=== PATIENT | female | born 1955 | race Caucasian/White ===

== ENCOUNTER → 2017-01-30 | Outpatient (CLI) | payer BC ==
--- NOTE | 2017-01-31 10:05 | MM ---
Reason for exam: screening (asymptomatic). Last mammogram was performed 1 year ago. History: Patient is postmenopausal. Family history of breast cancer in 2 maternal aunts and breast cancer in mother at age 64. Benign core biopsy of the right breast, October 06, 1997. Took estrogen for 10 years 6 months. Physical Findings: A clinical breast exam by your physician is recommended on an annual basis and results should be correlated with mammographic findings. MG Screening Mammo w CAD Bilateral CC and MLO view(s) were taken. Prior study comparison: January 16, 2016, bilateral MG screening mammo w CAD. January 10, 2015, bilateral MG diagnostic mammo w CAD [facility]. There are scattered fibroglandular densities. There is no discrete abnormality. No significant changes when compared with prior studies. ASSESSMENT: Negative, BI-RAD 1 RECOMMENDATION: Routine screening mammogram of both breasts in 1 year.
== END | disposition home or self-care (01) ==
LOC: RADMAMWWP 10:54
PROVIDERS: ATTEND Family Medicine
DX: Z12.31 Encounter for screening mammogram for malignant neoplasm of breast (principal)

== ENCOUNTER 2017-11-27 09:33 | Day surgery (SDC) | payer BC ==
[2017-11-26 10:30] VITALS: BMI 26.1
[~2017-11-27 09:33] MED LIST: LACTATED RINGERS 1,000 ML IV SCH; LIDOCAINE 1% 20 ML VIAL (10MG/ML) FOR IV START INTRADERMA PRN; PROPOFOL 10 MG/ML 20 ML VIAL IV ONE
[2017-11-27 10:28] VITALS: RESP 16; TEMP 97.7
[2017-11-27] MEDS ORDERED: PROPOFOL 10 MG/ML 20 ML VIAL IV ONE (10:55)
--- NOTE | 2017-11-27 11:17 | P.PCN ---
Date of Procedure: 11/27/17 Procedure(s) Performed: BRIEF HISTORY: Patient is a 62-year-old pleasant white female, scheduled for an elective colonoscopy as a part of screening for colorectal neoplasia. She does complain of chronic constipation. PROCEDURE PERFORMED: Colonoscopy. PREOPERATIVE DIAGNOSIS: Screening for colon cancer. IV sedation per Anesthesia. PROCEDURE: After informed consent was obtained, the patient, was brought into the endoscopy unit. IV sedation was administered by Anesthesia under continuous monitoring. Digital rectal examination was normal. Initially the Olympus CF- 160 flexible video colonoscope was then inserted in the rectum, gradually advanced into the cecum without any difficulty. Careful examination was performed as the scope was gradually being withdrawn. Ileocecal valve and the appendiceal orifice were visualized and appeared normal. Prep was excellent. Mucosa of the cecum, ascending colon, transverse colon, descending colon, sigmoid colon, and rectum appeared normal. Retroflexion was performed in the rectum and no lesions were seen. The patient tolerated the procedure well. IMPRESSION: Normal-appearing colon from rectum to cecum with no evidence of colorectal neoplasia . RECOMMENDATIONS: Findings of this examination were discussed with the patient as well as a family. She was advised to have a repeat screening colonoscopy in 10 years.
[2017-11-27 11:51] VITALS: BP 117/69; PULSE 58
== END 2017-11-27 12:13 | disposition home or self-care (01) ==
LOC: ORWHC2ENDO 09:33
PROVIDERS: ATTEND Internal Medicine Gastroenterology
DX: K59.09 Other constipation (principal); E07.9 Disorder of thyroid, unspecified; F39 Unspecified mood [affective] disorder; Z79.899 Other long term (current) drug therapy; Z88.2 Allergy status to sulfonamides; Z88.8 Allergy status to other drugs, medicaments and biological substances
CPT/HCPCS: 45378; J2704

== ENCOUNTER → 2018-08-26 | Outpatient (CLI) | payer BC ==
[2018-08-26 11:20] LABS: Basophils % (A) 0 %; Eosinophils # (A) 0.1 k/uL (0-0.7); Eosinophils % (A) 2 %; HCT 38.8 % (34.0-46.0); HGB 12.5 gm/dL (11.4-16.0); Lymphocytes # (A) 2.3 k/uL (1.0-4.8); Lymphocytes % (A) 45 %; MCH 29.8 pg (25.0-35.0); MCHC 32.3 g/dL (31.0-37.0); MCV 92.2 fL (80.0-100.0); Mean Platelet Volume 6.7; Monocytes # (A) 0.3 k/uL (0-1.0); Monocytes % (A) 6 %; Neutrophils # (A) 2.2 k/uL (1.3-7.7); Neutrophils % (A) 45 %; Platelet Count 322 k/uL (150-450); RBC 4.21 m/uL (3.80-5.40); RDW 13.8 % (11.5-15.5)
[2018-08-26 18:37] LABS: Albumin 4.5 g/dL (3.80-4.90); Albumin/Globulin Ratio 2.14 (1.20-2.10); Anion Gap 7.6 mmol/L (4.00-12.00); Calcium 9.6 mg/dL (8.7-10.3); Carbon Dioxide 28.4 mmol/L (21.6-31.8); Globulin 2.1 g/dL (2.1-3.7); LDL Cholesterol,Calculated 138.8 mg/dL (0.0-131.0); Potassium 4.9 mmol/L (3.5-5.5); Total Bilirubin 0.3 mg/dL (0.2-1.2); Total Protein 6.6 g/dL (6.2-8.2); VLDL Calculation 16.2 mg/dL (5.00-40.00)
[2018-08-26 18:45] LABS: T4, Free (Free Thyroxine) 1.1 ng/dL (0.80-1.80)
== END | disposition home or self-care (01) ==
LOC: LABWHC1 10:18
PROVIDERS: ATTEND Family Medicine
DX: E03.9 Hypothyroidism, unspecified (principal)
CPT/HCPCS: 36415; 80053; 80061; 84439; 84443; 85025

== ENCOUNTER → 2018-09-09 | Outpatient (CLI) | payer BC ==
--- NOTE | 2018-09-15 10:24 | MM ---
Reason for exam: screening (asymptomatic). Last mammogram was performed 1 year and 7 months ago. History: Patient is postmenopausal. Family history of breast cancer in 2 maternal aunts and breast cancer in mother at age 64. Benign core biopsy of the right breast, October 06, 1997. Took estrogen for 10 years 6 months. Physical Findings: A clinical breast exam by your physician is recommended on an annual basis and results should be correlated with mammographic findings. MG Screening Mammo w CAD Bilateral CC and MLO view(s) were taken. Prior study comparison: January 30, 2017, bilateral MG screening mammo w CAD. January 16, 2016, bilateral MG screening mammo w CAD. The breast tissue is heterogeneously dense. This may lower the sensitivity of mammography. Focal asymmetry stable left lower inner quadrant. No significant changes when compared with prior studies. ASSESSMENT: Benign, BI-RAD 2 RECOMMENDATION: Routine screening mammogram of both breasts in 1 year.
== END | disposition home or self-care (01) ==
LOC: RADMAMWWP 13:10
PROVIDERS: ATTEND Family Medicine
DX: Z12.31 Encounter for screening mammogram for malignant neoplasm of breast (principal)
CPT/HCPCS: 77067

== ENCOUNTER → 2021-07-11 | Outpatient (CLI) | payer MEDICARE, BC | END | disposition home or self-care (01) | LOC: LABWHC1 13:52 | PROVIDERS: ATTEND Internal Medicine Endocrinology, Diabetes & Metabolism | DX: E03.9 Hypothyroidism, unspecified (principal); E04.2 Nontoxic multinodular goiter; E06.3 Autoimmune thyroiditis; E55.9 Vitamin D deficiency, unspecified | CPT/HCPCS: 36415; 82306; 84439; 84443; 84481 ==

== ENCOUNTER → 2021-11-28 | Outpatient (CLI) | payer MEDICARE, BC ==
[2021-11-28 18:35] LABS: T4, Free (Free Thyroxine) 1.29 ng/dL (0.800-1.800)
== END | disposition home or self-care (01) ==
LOC: LABWHC1 11:45
PROVIDERS: ATTEND Internal Medicine Endocrinology, Diabetes & Metabolism
DX: E55.9 Vitamin D deficiency, unspecified (principal)
CPT/HCPCS: 36415; 84439; 84443; 84481

== ENCOUNTER → 2022-01-26 | Outpatient (CLI) | payer MEDICARE, BC ==
--- NOTE | 2022-01-29 11:36 | MM ---
Reason for exam: screening (asymptomatic). Last mammogram was performed 3 years and 5 months ago. History: Patient is postmenopausal. Family history of breast cancer in 2 maternal aunts and breast cancer in mother at age 64. Benign core biopsy of the right breast, October 06, 1997. Took estrogen for 10 years 6 months. Physical Findings: A clinical breast exam by your physician is recommended on an annual basis and results should be correlated with mammographic findings. MG 3D Screening Mammo W/Cad Bilateral CC and MLO view(s) were taken. Prior study comparison: October 17, 2020, mammogram, performed at [facility]. September 09, 2018, bilateral MG screening mammo w CAD. January 30, 2017, bilateral MG screening mammo w CAD. There are scattered fibroglandular densities. There is no discrete abnormality. No significant changes when compared with prior studies. ASSESSMENT: Negative, BI-RAD 1 RECOMMENDATION: Routine screening mammogram of both breasts in 1 year.
== END | disposition home or self-care (01) ==
LOC: RADMAMWWP 15:56
PROVIDERS: ATTEND Family Medicine
DX: Z12.31 Encounter for screening mammogram for malignant neoplasm of breast (principal); Z78.0 Asymptomatic menopausal state; Z80.3 Family history of malignant neoplasm of breast
CPT/HCPCS: 77063; 77067

== ENCOUNTER → 2022-07-19 | Outpatient (CLI) | payer MEDICARE, BC ==
[2022-07-19 23:24] LABS: T4, Free (Free Thyroxine) 1.27 ng/dL (0.800-1.800)
== END | disposition home or self-care (01) ==
LOC: LABWHC1 14:45
PROVIDERS: ATTEND Internal Medicine Endocrinology, Diabetes & Metabolism
DX: E55.9 Vitamin D deficiency, unspecified (principal)
CPT/HCPCS: 36415; 82306; 84439; 84443; 84481

== ENCOUNTER → 2022-11-12 | Outpatient (CLI) | payer MEDICARE, BC ==
[2022-11-12 18:46] LABS: HCT 39.4 % (37.2-46.3); HGB 12.4 g/dL (12.0-15.0); MCH 29.7 pg (27.0-32.0); MCHC 31.5 g/dL (32.0-37.0); MCV 94.5 fL (80.0-97.0); Mean Platelet Volume 9.5 fL (9.5-12.2); NRBC Per 100 WBC 0 /100 WBCS (0.0-0.0); Platelet Count 290 X 10*3/uL (140-440); RBC 4.17 X 10*6/uL (4.10-5.20); WBC 5.83 X 10*3/uL (4.50-10.00)
[2022-11-12 19:14] LABS: African American GFR (CKD) 83.9 (60.0-200.0); Albumin 4.6 g/dL (3.8-4.9); Albumin/Globulin Ratio 1.94 (1.60-3.17); Anion Gap 11.3 mmol/L (10.00-18.00); BUN/Creat Ratio 16.67 Ratio (12.00-20.00); Calcium 9.9 mg/dL (8.7-10.3); Globulin 2.4 g/dL (1.6-3.3); Non-African American GFR(CKD) 72.4 (60.0-200.0); Potassium 4.7 mmol/L (3.5-5.5); T4, Free (Free Thyroxine) 1.21 ng/dL (0.800-1.800); Total Bilirubin 0.3 mg/dL (0.30-1.20)
== END | disposition home or self-care (01) ==
LOC: LABWHC1 10:26
PROVIDERS: ATTEND Family Medicine
DX: E03.9 Hypothyroidism, unspecified (principal); E04.2 Nontoxic multinodular goiter; E06.3 Autoimmune thyroiditis; E55.9 Vitamin D deficiency, unspecified; R73.9 Hyperglycemia, unspecified; R63.1 Polydipsia
CPT/HCPCS: 36415; 80053; 83036; 84439; 84443; 85027

== ENCOUNTER → 2023-01-24 | Outpatient (CLI) | payer MEDICARE, BC ==
[2023-01-25 04:08] LABS: Appearance,Urine Clear (Clear); Bilirubin,Urine Negative (Negative); Blood,Urine Negative (Negative); Color,Urine Yellow (Yellow); Ketones,Urine Negative (Negative); Nitrite,Urine Negative (Negative); PH, Urine 5.5 (5.0-8.0); Specific Gravity,Urine 1.007 (1.001-1.030); Urobilinogen,Urine 0.2 (0.2,1.0)
== END | disposition home or self-care (01) ==
LOC: LABPAT 15:27
PROVIDERS: ATTEND Orthopaedic Surgery Orthopaedic Surgery of the Spine
DX: M43.10 Spondylolisthesis, site unspecified (principal)
CPT/HCPCS: 81003

== ENCOUNTER 2023-01-30 06:17 | Inpatient (IN) | payer MEDICARE, BC ==
[2023-01-24 10:32] VITALS: BMI 22.9
[~2023-01-30 06:17] MED LIST changes: +DEXAMETHASONE SOD PHOSPHATE 4 MG/ML 1 ML VIAL IV ONE; -LACTATED RINGERS 1,000 ML IV SCH; -LIDOCAINE 1% 20 ML VIAL (10MG/ML) FOR IV START INTRADERMA PRN; +MIDAZOLAM 2 MG/2 ML VIAL IV PRN; +ONDANSETRON 4 MG/2 ML VIAL IVP ONE; -PROPOFOL 10 MG/ML 20 ML VIAL IV ONE; +ceFAZolin 1,000 MG in SODIUM CHLORIDE 0.9% IRRIGATIO 1,000 ML IRRIGATION PRN
[2023-01-30] MEDS ORDERED: ONDANSETRON 4 MG/2 ML VIAL ONE (06:57)
[2023-01-30] MEDS: LACTATED RINGERS 1,000 ML IV SCH ×2 (07:03→14:26)
[2023-01-30] MEDS ORDERED: ONDANSETRON 4 MG/2 ML VIAL IVP ONE (07:04)
[2023-01-30] MEDS ORDERED: fentaNYL (PF) 50 MCG/1 ML VIAL IVP ONE (07:14)
[2023-01-30] MEDS ORDERED: ROCURONIUM 10 MG/ML (5 ML VIAL) IV ONE (07:30)
[2023-01-30] MEDS ORDERED: NEOSTIGMINE 1 MG/ML 10 ML VIAL ONE (07:30)
[2023-01-30] MEDS ORDERED: LIDOCAINE 2% INJ 20 MG/ML (2 ML VIAL) ONE (07:30)
[2023-01-30] MEDS ORDERED: GLYCOPYRROLATE 0.2 MG/ML 2 ML VIAL ONE (07:30)
[2023-01-30] MEDS ORDERED: fentaNYL (PF) 50 MCG/ML 2 ML AMP ONE (07:30)
[2023-01-30] MEDS ORDERED: ePHEDrine 50 MG/ML 1 ML VIAL ONE (07:30)
[2023-01-30] MEDS ORDERED: MIDAZOLAM 2 MG/2 ML VIAL ONE (07:30)
[2023-01-30] MEDS ORDERED: PROPOFOL 10 MG/ML 20 ML VIAL IV ONE (07:30)
[2023-01-30] MEDS ORDERED: PHENYLEPHRINE-0.9% NACL SYG 1,000 MCG/10 ML SYRINGE ONE (07:30)
[2023-01-30] MEDS ORDERED: SUCCINYLCHOLINE CHLORIDE 200 MG/10 ML VIAL IV ONE (07:30)
[2023-01-30] MEDS ORDERED: GELATIN SPONGE,ABSORB (LARGE) 1 EACH SPONGE TOPICAL ONE (07:35)
[2023-01-30] MEDS ORDERED: LIDOCAINE 0.5%-EPI 1:200,000 50 ML VIAL SQ ONE (07:35)
[2023-01-30] MEDS ORDERED: THROMBIN (BOVINE) 5,000 UNIT VIAL TOPICAL ONE (07:35)
[2023-01-30] MEDS ORDERED: LACTATED RINGERS 1,000 ML IV ONE (09:29)
[2023-01-30] MEDS ORDERED: BENZOCAINE/MENTHOL LOZENG 1 EACH LOZENGE MUCOUS MEM PRN (11:31)
[2023-01-30] MEDS ORDERED: MAG HYDROX/AL HYDROX/SIMETH 30 ML CUP PO PRN (11:31)
[2023-01-30] MEDS ORDERED: MAGNESIUM HYDROXIDE 2,400 MG/10 ML CUP PO PRN ×2 (11:31)
[2023-01-30] MEDS ORDERED: MENTHOL-ZINC OXIDE OINT 113 GM TUBE TOPICAL PRN (11:33)
--- NOTE | 2023-01-30 11:40 | P.OP ---
Date of Procedure: 01/30/23 Preoperative Diagnosis: Dynamic spondylolisthesis L4 5, spinal stenosis L4 5 L5-S1, low back pain, lower extremity radiculopathy, facet arthrosis, spondylolysis, degenerative disc disease Postoperative Diagnosis: Dynamic spondylolisthesis L4 5, spinal stenosis L4 5 L5-S1, low back pain, lower extremity radiculopathy, facet arthrosis, spondylolysis, degenerative disc disease Anesthesia: GETA Pathology: none sent Condition: stable Disposition: PACU Description of Procedure: DESCRIPTION OF PROCEDURE(S): BRIEF OPERATIVE NOTE Preoperative Diagnosis: Spondylolisthesis , spinal stenosis , lower extremity radiculopathy, lower extremity weakness, neurogenic claudication, low back pain, degenerative disc disease Postoperative Diagnosis: Same Procedure: Laminectomy and decompression L4 5 L5-S1 Computer CT navigation aided Minimally invasive Posterior lateral decompression and facet fusion L4 5 L5-S1 Minimally invasive Transforaminal lumbar interbody fusion for a 360 fusion L4 5 L5-S1 Discectomy for decompression L4 5 L5-S1 Placement of interbody graft L4 5 L5-S1 Use of computer navigation for fusion at L4 5 L5-S1 Local autogenous bone grafting Aspiration of bone marrow from the vertebral body pedicle at L4 on the right Use of bone graft extenders Surgeon: Dr. Simomns Forklift Driver: Eugene BAIG who is present throughout the entire the case persistence during positioning, dissection, exposure, visualization, and all crucial elements of the case as well as closure. Anesthesia: General anesthesia per Dr. Askew Estimated blood loss: Approximately 200 mL with 80 mL given back through Cell Saver Complications: None apparent Components implanted: K2M minimally invasive [place] pedicle screw system withscrews measuring 5.5 and 6.5 mm in diameter to rods one [place] interbody cage at L5-S1 and 1 Mirus expandable cage at L4 5 with 10 mL of osteo amp bio4 bone graft substitute and 30 mL of the BX bone fibers to supplement the local autogenous bone graft and bone marrow aspirate Disposition: To recovery room in good stable condition. OPERATIVE INDICATIONS The patient has had severe issues at their lower extremity in her lower back over the past several years with significant worsening over the past several months. Over the past few months the patient had pain at their back and their lower extremities. The patient is having severe radicular symptoms at their lower extremity with weakness. The patient is having significant pain in their back. They are unable to obtain any comfort. We did aggressive conservative treatment with medications therapy and interventional pain management however thery were not having any relief. The patient also showed evidence of a listhesis with some dynamic instability which have been worsening at L4 5. The patient has been through conservative treatment. We discussed various treatment options including surgery, and the patient wishes to proceed with surgery We discussed the risk, patient's alternatives and benefits of surgery including but not limited to, risk of bleeding risk of infection, risk of need for further surgery, risk of decreased, loss of motion, muscle function, malunion nonunion, hardware failure, nerve damage, paralysis, heart attack, blindness and . They understood issues with the current pandemic and the possibility of exposure. OPERATIVE SUMMARY After discussing all the risks, patient alternatives and benefits at length, the patient elected to proceed with surgical intervention, signed informed consent, and presented for their procedure. The patient was seen and examined in the preoperative holding area and the surgical site was marked. The patient was given antibiotics and brought to the operating room. The patient was sedated and intubated by anesthesia in standard fashion. The patient was positioned on to the operating room table in a prone position on the appropriate frame which was well-padded and well molded. We were careful to pad any bony prominences and pressure points. We were careful to maintain the patient's cervical spine and good neutral alignment and position throughout. The patient was prepped and draped in a normal standard fashion. An appropriate timeout and keystone protocol performed. We were able to proceed with the surgery. The local wound area was infiltrated with local anesthetic. Over the right iliac crest I was able to make small stab incisions and establish a guidepin screw fixation to the iliac crest 2. I was able place the computer referencing device over the guidepins to establish an appropriate reference point for the Ziem CT navigation. We then were able to place patient in an appropriate drape and do a navigation spin for visualization and 3-D reconstruction of the lumbar spine. I was able utilize C-arm guidance and navigation to establish appropriate position over the pedicles bilaterally at the appropriate levels at L4-L5 and S1 . With the appropriate levels confirmed was able to make small incisions over the appropriate pedicle sites bilaterally at L4-L5 and S1. Utilizing the computer navigation device I was able to establish bony landmarks at the right iliac crest for a bony reference point for the navigation device. I was able to establish a Jamshidi needle over the lateral aspect of the pedicle and advanced the trocar into the pedicle being careful not to breech superiorly inferiorly medially or laterally using computer navigation device. Position was confirmed regularly with AP and lateral images on C-arm and with the computer navigation device at the appropriate levels bilaterally. I was able to establish the trocar into the pedicle appropriately into the posterior aspect of the vertebral body bilaterally at the appropriate levels at L4-L5 and S1. This was done at each of the pedicle positions and each of the vertebrae. At the superior vertebrae I was able to take approximately 25 mL of bone aspiration for use later in the case to supplement the allograft and autograft bone. I was able place the guidewire into the trocar and into the vertebral body appropriately under C-arm guidance. Dissection was taken down over the wire to the appropriate starting position for the screw placed. The appropriate length screw was chosen, threaded over the guidewire and screwed appropriately into the pedicle and vertebral body under C-arm guidance in excellent alignment and position with good bony purchase. This is done at each of the screw sites at the appropriate levels at L4-L5 and S1.. With the screws intact I extended the incision to connect the screw hole sites on the most symptomatic side on the right. I dissected down to establish access over the pars and lamina to the base of the spinous process. I was able to expose the facet joint. The capsule the facet was taken down and showed some facet arthrosis at the joint. I was able to use a combination of curettes and Kerrison rongeurs and a high-speed drill to take down the facet joint and do a facetectomy. I was able get excellent foraminal decompression and central decompression with undermining across midline to perform a laminectomy centrally and contralaterally. As able get good central decompression. The ligamentum flavum was taken down to further decompress centrally and at bilateral neural foramen. I was able to expose the disc space and visualize the traversing nerve root. Note was made of some disc protrusion and disc herniation that was abutting the traversing nerve root at the level causing further compression of the nerve root. I was able to establish a annulotomy at the appropriate level protecting soft tissue and neural structures. Note was made of some disc desiccation at the disc. I performed a complete discectomy with accommodation of curettes and rasps and scrapers. I was able get good endplate preparation at the disc space. I sized for the appropriate size interbody spacer protecting the soft tissue and neural structures. The wound was copiously irrigated and suctioned dry. There is no evidence of any dural tear or leak. I was able to pack the disc space with local autogenous bone graft as well as a small amount of bone graft which was also placed into the interbody cage itself. At this point I returned to the opposite side took down the facet joints appropriately packed with bone graft and then placed joaquín to get good initial reduction of the listhesis at L4 5. I then returned to the right side to place the interbody device. Protecting the soft tissue structures and neural structures I was able place the interbody cage in good alignment and good position with good fit and I was able to expand the device appropriately with good tensioning at L4 5 and I used a static device at L5 S1 at the interbody space. Position was confirmed with C-arm guidance. Good hemostasis maintained. There is no evidence of any dural tear or leak. The wound was irrigated and suctioned dry. With the hardware intact, intraoperative C-arm imaging was again taken which s howed good alignment and position of the hardware at the appropriate levels. We were then able to measure, contour and place the rods and appropriate hardware bilaterally. I was able to place capcrews, tighten them down, and torque them with the torque screwdriver appropriately. With this intact I was able to place the local autogenous bone graft with additional bone graft enhancer as necessary into the posterior lateral gutters over the decorticated transverse processes and facet joints on the contralateral side. The remainder of the bone graft was placed over the facet joint on the contralateral side after taking down the facet joint capsule. With the bone graft intact, a stable construct, and good decompression at the appropriate levels, we were able to proceed with closure. Good hemostasis was maintained. There is no evidence of dural tear or leak. The fascia was closed for a watertight closure. he subcuticular tissue was closed with absorbable suture. The wound was cleaned and dried and dressed with the appropriate dressing. The drapes were broken down. The patient was gently rolled back onto their hospital bed being careful to maintain their cervical spine and good neutral alignment and position. They were woken up by anesthesia, extubated, and brought to the recovery room in good stable condition. The patient will be admitted to the hospital for appropriate postoperative care, medical management and monitoring. We will continue to follow them closely about the postoperative course.
[2023-01-30] MEDS: HYDROmorphone 0.5 MG/0.5 ML SYRINGE IVP PRN ×7 (11:50→23:21)
[2023-01-30] MEDS ORDERED: fentaNYL (PF) 50 MCG/1 ML VIAL IV ONE ×2 (12:26→12:36)
[2023-01-30 12:32] LABS: Glucose,Whole Blood 148 mg/dL (70-110)
[2023-01-30] MEDS: MEPERIDINE 50 MG/ML SYRINGE IVP ONE ×2 (12:54→13:16)
--- NOTE | 2023-01-30 15:11 | FL ---
Intraoperative/procedural fluoroscopic services were provided. Total fluoroscopy time is 21 seconds w ith a total of 8 submitted images to PACS. Please see the operative/procedural note for further louise rosenberg. DAP: [id number]
[2023-01-30] MEDS: CYCLOBENZAPRINE 10 MG TAB PO PRN ×2 (15:31→23:21)
[2023-01-30] MEDS: HYDROcodone/APAP 5-325MG 1 EACH TAB PO PRN ×2 (15:31→21:26)
[2023-01-30] MEDS: SODIUM CHLORIDE 0.9% 1,000 ML IV SCH (16:45)
[2023-01-30] MEDS: ONDANSETRON 4 MG/2 ML VIAL IVP PRN (21:26)
[2023-01-31] MEDS: HYDROcodone/APAP 5-325MG 1 EACH TAB PO PRN ×5 (02:05→20:51)
[2023-01-31] MEDS: ALPRAZolam 0.5 MG TAB PO PRN ×2 (02:05→20:51)
[2023-01-31] MEDS: HYDROmorphone 0.5 MG/0.5 ML SYRINGE IVP PRN ×4 (05:13→17:45)
[2023-01-31] MEDS: ONDANSETRON 4 MG/2 ML VIAL IVP PRN ×2 (05:13→20:08)
[2023-01-31] MEDS: LEVOTHYROXINE 25 MCG TAB PO SCH (06:01)
[2023-01-31] MEDS: CYCLOBENZAPRINE 10 MG TAB PO PRN ×2 (06:46→15:39)
[2023-01-31] MEDS: SODIUM CHLORIDE 0.9% 1,000 ML IV SCH ×2 (06:47→15:15)
[2023-01-31] MEDS: LACTATED RINGERS 1,000 ML IV SCH (07:58)
[2023-01-31] MEDS ORDERED: NON FORMULARY DRUG (Vitamin K2 [Vitamin K2] 100 MCG Capsule) PO SCH (09:00)
[2023-01-31] MEDS ORDERED: FOLIC AC PO SCH (09:00)
[2023-01-31] MEDS ORDERED: VIT B6 PO SCH (09:00)
[2023-01-31] MEDS ORDERED: CYANOCOBALAMIN PO SCH (09:00)
[2023-01-31] MEDS ORDERED: [UNRECOGNIZED DRUG - OTHER] PO SCH (09:00)
--- NOTE | 2023-01-31 09:14 | P.PN ---
Progress Note - Text Progress Note Date: 01/31/23 Postoperative day #1 Patient is seen and examined today at bedside. The patient has some pain around the surgical site as expected. Pain is being controlled with medication. She has been having some nausea overnight and this morning but is some tolerating some sips of water and fluids. Her back is quite sore but she was able get up with therapy of to a chair this morning Physical Exam Afebrile with stable vital signs Abdomen is soft nontender. Chest has good excursion deep and space expiration The incision site is clean dry and intact. No erythema there is no purulence. Her dressings intact without any active drainage Extremities have not had neurologic change from prior to surgery. She has sustained dorsal to plantar flexion and EHL intact Calves and thighs were soft nontender without evidence of DVT. Assessment/Plan Postoperative day #1 status post minimally invasive decompression and fusion for her dynamic grade 2-3 spondylolisthesis at L4 5 with stenosis L4 5 and L5-S1 with lower extremity radiculopathy Patient is progressing as expected from the surgery. She is quite sore had her back but has been able to mobilize already and I think she will make good improvement. Her nausea is being controlled adequately with the Zofran and we will try to continue to manage and monitor her pain as she continues to mobilize. We will continue to increase the patient's mobilization with therapy. We will continue pain control with oral or IV medications. We'll continue to follow patient closely.
[2023-01-31] MEDS: lamoTRIgine 100 MG TAB PO SCH (09:16)
[2023-01-31] MEDS: CHOLECALCIFEROL 125 MCG (5000 IU) TABLET PO SCH (09:16)
[2023-01-31] MEDS: SENNOSIDES-DOCUSATE SODIUM 1 EACH TAB PO SCH (09:16)
[2023-01-31] MEDS: ESCITALOPRAM 10 MG TAB PO SCH (09:16)
[2023-01-31 10:51] LABS: Basophils # (A) 0.01 X 10*3/uL (0.00-0.10); Basophils % (A) 0.1 %; Eosinophils # (A) 0 X 10*3/uL (0.04-0.35); Eosinophils % (A) 0 %; HCT 32.6 % (37.2-46.3); HGB 10.4 g/dL (12.0-15.0); Immature Grans, Automated 0.4 %; Lymphocytes # (A) 1.01 X 10*3/uL (0.90-5.00); Lymphocytes % (A) 9.2 %; MCH 30.6 pg (27.0-32.0); MCHC 31.9 g/dL (32.0-37.0); MCV 95.9 fL (80.0-97.0); Mean Platelet Volume 9.9 fL (9.5-12.2); Monocytes # (A) 0.92 X 10*3/uL (0.20-1.00); Monocytes % (A) 8.4 %; NRBC Per 100 WBC 0 /100 WBCS (0.0-0.0); Neutrophils # (A) 8.94 X 10*3/uL (1.80-7.70); Neutrophils % (A) 81.9 %; Platelet Count 225 X 10*3/uL (140-440); RDW 13.1 % (11.5-14.5); WBC 10.92 X 10*3/uL (4.50-10.00)
[2023-01-31 11:18] LABS: African American GFR (CKD) 109.7 (60.0-200.0); Anion Gap 7.8 mmol/L (10.00-18.00); BUN/Creat Ratio 8.55 Ratio (12.00-20.00); Blood Urea Nitrogen 5.2 mg/dL (9.0-27.0); Calcium 8.8 mg/dL (8.7-10.3); Non-African American GFR(CKD) 94.7 (60.0-200.0); Potassium 4.2 mmol/L (3.5-5.5)
[2023-01-31] MEDS ORDERED: SODIUM CHLORIDE 0.9% 500 ML 500 ML IV ONE (15:12)
[2023-01-31 15:55] LABS: Basophils % (A) 0 %; Eosinophils # (A) 0.1 k/uL (0-0.7); Eosinophils % (A) 1 %; HCT 32.4 % (34.0-46.0); HGB 10.6 gm/dL (11.4-16.0); Lymphocytes # (A) 1.4 k/uL (1.0-4.8); Lymphocytes % (A) 12 %; MCHC 32.8 g/dL (31.0-37.0); MCV 94.3 fL (80.0-100.0); Mean Platelet Volume 7.4; Monocytes # (A) 0.5 k/uL (0-1.0); Monocytes % (A) 4 %; Neutrophils # (A) 9.7 k/uL (1.3-7.7); Neutrophils % (A) 82 %; Platelet Count 217 k/uL (150-450); RBC 3.43 m/uL (3.80-5.40); RDW 13.2 % (11.5-15.5); WBC 11.9 k/uL (3.8-10.6)
--- NOTE | 2023-01-31 22:13 | P.CONS ---
History of Present Illness - Reason for Consult Consult date: 01/31/23 Medical management Requesting physician: Sergey Simmons - Chief Complaint Lumbar surgery - History of Present Illness This is a pleasant 67-year-old patient who follows with Dr. Mccloud. Patient been having low back pain. Creatinine down the right leg. Patient is just trouble standing and more trouble sitting down. Patient underwent lumbar surgery yesterday. Pain control. No drain. This morning patient had some nausea some vomiting. Dizzy lightheaded. Up in a chair. at the bedside. Patient somewhat controlled. Review of systems: GEN.: Tired EYES: None HEENT: None NECK: None RESPIRATORY: None CARDIOVASCULAR: None GASTROINTESTINAL: None GENITOURINARY: None MUSCULOSKELETAL: [Pain at the operative site LYMPHATICS: None HEMATOLOGICAL: None PSYCHIATRY: None NEUROLOGICAL: None Past medical history to include: Thyroid disorder, constipation, osteoarthritis, anxiety Social history: . Nonsmoker. Alcohol rarely. Physical examination: VITAL SIGNS: 98.7, 88, 17, 108 x 69, 94% room air GENERAL: BMI 23.1, sitting or chair awake. EYES: Pupils equal. Conjunctiva normal. HEENT: External appearance of nose and ears normal, oral cavity grossly normal. NECK: JVD not raised; masses not palpable. HEART: First and second heart sounds are normal; no edema. LUNGS: Respiratory rate normal; clear to auscultation. ABDOMEN: Soft, nontender, liver spleen not palpable, no masses palpable. PSYCH: Alert and oriented x3; mood and affect normal. MUSCULOSKELETAL:No Clubbing/cyanosis;muscles-grossly intact. Dressing over incision site in the lower back NEUROLOGICAL: Cranial nerves grossly intact; no facial asymmetry, power and sensation grossly intact. LYMPHATICS: No lymph nodes palpable in the axilla and neck INVESTIGATIONS, reviewed in the clinical context: January 31: White count 9.9 hemoglobin 10.4 platelets 225 sodium 140 potassium 4.2 creatinine 0.6 01/22/2023: WBC 4.9 hemoglobin 11.8 potassium 4.3 creatinine 0.8 Assessment and plan: -Dynamic spondylitis this L4-L5, spinal stenosis L4-L5, L5-S1, low back pain, lower extremity radiculopathy in the right, facet arthrosis, DJD. Laminectomy and decompression discectomy placement of graft local bone grafting done on 01/30/[address] Rich Pain control -Nausea vomiting likely secondary to pain medications Antiemetics -Mild acute blood loss anemia secondary as expected to procedure Give IV iron in the morning. -Hypothyroid Synthroid -Depression Lexapro, Xanax Discussed with the patient and the . Thank you Dr. Simmons Care was discussed with the patient has been the bedside. Questions answered. Past Medical History Past Medical History: Thyroid Disorder Additional Past Medical History / Comment(s): PELVIC PAIN, BLOATING, ABD PAIN, CONSTIPATION History of Any Multi-Drug Resistant Organisms: None Reported Past Surgical History: Bladder Surgery, Hysterectomy, Orthopedic Surgery Additional Past Surgical History / Comment(s): BLADDER SUSPENSION. CYSTOCELE. RT KNEE SCOPE. COLONOSCOPY Past Anesthesia/Blood Transfusion Reactions: Postoperative Nausea & Vomiting (PONV) Smoking Status: Never smoker - Past Family History Brother(s) Family Medical History: Cancer Additional Family Medical History / Comment(s): 1 BROTHER COLON. 1 BROTHER RECTAL Mother Family Medical History: Cancer Additional Family Medical History / Comment(s): BREAST AND THYROID Father Family Medical History: CVA/TIA Medications and Allergies Home Medications Medication Instructions Recorded Confirmed Type ALPRAZolam [Xanax] 0.5 mg PO QID PRN 11/26/17 01/24/23 History Escitalopram [Lexapro] 10 mg PO QAM 11/26/17 01/24/23 History Cholecalciferol [Vitamin D3 (125 125 mcg PO DAILY 01/24/23 01/24/23 History Mcg = 5000 Iu)] Cyanocobalamin/Folic AC/Vit B6 1 each PO DAILY 01/24/23 01/24/23 History [Homocysteine Formula Tablet] Ibuprofen [Motrin] 800 mg PO BID PRN 01/24/23 01/24/23 History Menthol [Biofreeze] 1 applic TOPICAL DIRECTED PRN 01/24/23 01/24/23 History Vitamin K2 100 mcg PO DAILY 01/24/23 01/24/23 History lamoTRIgine [LaMICtal] 300 mg PO QAM 01/24/23 01/24/23 History Levothyroxine Sodium 25 mg PO DAILY 01/30/23 01/30/23 History Allergies Allergy/AdvReac Type Severity Reaction Status Date / Time ranitidine [From Zantac] Allergy Anaphylaxis Verified 01/30/23 06:37 sulfamethoxazole AdvReac Nausea & Verified 01/30/23 06:37 [From Bactrim] Vomiting & Diarrhea trimethoprim [From Bactrim] AdvReac Nausea & Verified 01/30/23 06:37 Vomiting & Diarrhea Physical Exam Vitals: Vital Signs Temp Pulse Pulse Resp BP Pulse Ox 01/31/23 07:28 98.7 F 88 17 118/69 94 L 01/31/23 01:58 99.2 F 94 16 125/73 95 01/30/23 18:46 97.8 F 83 16 124/69 98 01/30/23 18:33 90 01/30/23 17:37 97.9 F 90 18 118/67 01/30/23 14:00 98.2 F 113 H 17 115/70 99 01/30/23 13:45 91 16 92/43 100 01/30/23 13:30 82 16 98/46 100 01/30/23 13:15 91 16 101/49 96 01/30/23 13:00 90 16 106/51 96 01/30/23 12:45 90 16 118/70 99 01/30/23 12:30 101 H 16 108/59 99 01/30/23 12:15 89 16 137/61 99 01/30/23 12:00 107 H 16 143/63 99 01/30/23 11:45 112 H 16 135/60 99 01/30/23 11:39 97.4 F L 104 H 16 135/61 99 Intake and Output 01/30/23 01/31/23 01/31/23 22:59 06:59 14:59 Output Total 400 700 Balance -400 -700 Output: Urine 400 700 Other: Voiding Method Indwelling Catheter Indwelling Catheter Weight 62.9 kg Results CBC & Chem 7: 01/31/23 15:42 01/31/23 06:57 Labs: Abnormal Lab Results - Last 24 Hours (Table) 01/30/23 Range/Units 12:30 POC Glucose (mg/dL) 148 H (70-110) mg/dL
[2023-02-01] MEDS: HYDROcodone/APAP 5-325MG 1 EACH TAB PO PRN ×6 (00:39→22:09)
[2023-02-01] MEDS: CYCLOBENZAPRINE 10 MG TAB PO PRN ×2 (00:39→20:25)
[2023-02-01] MEDS: HYDROmorphone 0.5 MG/0.5 ML SYRINGE IVP PRN (03:32)
[2023-02-01] MEDS: SODIUM CHLORIDE 0.9% 1,000 ML IV SCH ×2 (04:53→05:45)
[2023-02-01] MEDS: LEVOTHYROXINE 25 MCG TAB PO SCH (05:44)
[2023-02-01 07:37] LABS: Basophils % (A) 0 %; Eosinophils # (A) 0.1 k/uL (0-0.7); Eosinophils % (A) 1 %; HCT 30.8 % (34.0-46.0); HGB 10.3 gm/dL (11.4-16.0); Lymphocytes # (A) 1.2 k/uL (1.0-4.8); Lymphocytes % (A) 12 %; MCHC 33.4 g/dL (31.0-37.0); Mean Platelet Volume 7.4; Monocytes # (A) 0.5 k/uL (0-1.0); Monocytes % (A) 6 %; Neutrophils # (A) 7.8 k/uL (1.3-7.7); Neutrophils % (A) 81 %; Platelet Count 211 k/uL (150-450); RBC 3.21 m/uL (3.80-5.40); RDW 13.1 % (11.5-15.5); WBC 9.6 k/uL (3.8-10.6)
[2023-02-01] MEDS: ESCITALOPRAM 10 MG TAB PO SCH (08:56)
[2023-02-01] MEDS: CHOLECALCIFEROL 125 MCG (5000 IU) TABLET PO SCH (08:56)
[2023-02-01] MEDS: SENNOSIDES-DOCUSATE SODIUM 1 EACH TAB PO SCH (08:57)
[2023-02-01] MEDS: lamoTRIgine 100 MG TAB PO SCH (08:57)
[2023-02-01] MEDS: LACTATED RINGERS 1,000 ML IV SCH (08:58)
--- NOTE | 2023-02-01 09:05 | P.PN ---
Progress Note - Text Progress Note Date: 02/01/23 Orthopedic Spine History of present illness: Patient is a pleasant 67-year-old female who is seen and examined at the bedside following posterior lateral decompression and fusion performed Saturday. Patient states they are doing much better today post operatively. She was having significant pain yesterday in her lumbar spine as well over her anterior thighs and knees. Her pain has been better controlled with more regimented medications. She does continue has significant difficulty mobilization. She continues to require IV and oral medications for pain control. She has had difficulty standing due to leg pain. She does feel her pain is better cont rolled this morning as compared to yesterday. Her Funk catheter was discontinued this morning. She has not yet voided independently. Currently does not complain of nausea, vomiting, fever, or chills. Physical Exam Lumbar Fusion: Status post surgical day number 2 Patient is awake, alert, and oriented 3 Vital signs stable Good chest excursion with deep inspiration and expiration Dorsiflexion, plantarflexion, and extensor hallucis longus positive sustained bilaterally No signs or symptoms of DVT; no calf pain; pneumatic cuffs intact bilateral lower extremities Optifoam dressings are clean, dry, and intact over the lumbar spine and right iliac crest; no erythema, purulence, or signs of infection Neurovascularly intact bilaterally lower extremities Assessment: Status post L4-5 and L5-S1 minimally invasive posterior lateral decompression and fusion with transforaminal lumbar interbody fusion Low back pain L4-5 dynamic spondylolisthesis L4-5 and L5-S1 spinal stenosis Lower extremity radiculopathy Lumbar facet arthrosis Lumbar degenerative disc disease Lumbar spondylolysis Hypothyroidism Plan: 1. Ambulate as tolerated; work with Physical Therapy to increase mobilization 2. Continue pain control with IV and oral medications; will plan to begin weaning the patient off of IV narcotic medication in anticipation for discharge home in the next 1-2 days 3. Dressings to remain intact with Optifoam; patient may shower with dressings intact 4. Medical management can continue to manage patient for patient's other medical diagnoses 5. We will continue to follow the patient closely; patient continues to have difficulty with mobilization and ambulation postoperatively. She has been working with physical therapy and is progressing. She continues to require IV and oral medications for pain control. I do not feel the patient is ready for discharge home. Patient will continue to remain in the hospital until her symptoms improve and her pain is better controlled. We will plan to have the patient be admitted to in patient status during her admission. Depending on her progress we patient may plan to be discharged home tomorrow, 02/02/2023, or possibly 02/03/2023. We will line to wean the patient off IV narcotic medication as her pain is better controlled. 6. Patient can follow-up with Eugene Winters PA-C or Dr. Marty Simmons at [facility] in 2-3 weeks following discharge
[2023-02-01 19:51] VITALS: RESP 16
--- NOTE | 2023-02-01 21:59 | P.PN ---
Progress Note - Text Progress Note Date: 02/01/23 - Chief Complaint Lumbar surgery Hospital course: This is a pleasant 67-year-old patient who follows with Dr. Mccloud. Patient been having low back pain. Creatinine down the right leg. Patient is just trouble standing and more trouble sitting down. Patient underwent lumbar surgery yesterday. Pain control. No drain. This morning patient had some nausea some vomiting. Dizzy lightheaded. Up in a chair. at the bedside. Pain myrna ewhat controlled. February 01: Laying in bed. Some cramp in the thighs. No nausea vomiting. Small amount of flatus. Walk to the bathroom. at the bedside. Active Medications Hydrocodone Bitart/Acetaminophen (Hydrocodone/Apap 5-325mg 1 Each Tab) 1 each PO Q4HR PRN PRN Reason: Pain Stop: 03/01/23 11:32 Last Admin: 02/01/23 18:09 Dose: 1 each Al Hydroxide/Mg Hydroxide (Mag Hydrox/Al Hydrox/Simeth 30 Ml Cup) 30 ml PO Q4HR PRN PRN Reason: Indigestion Stop: 03/01/23 11:32 Alprazolam (Alprazolam 0.5 Mg Tab) 0.5 mg PO QID PRN PRN Reason: Anxiety Stop: 03/01/23 11:34 Last Admin: 01/31/23 20:51 Dose: 0.5 mg Benzocaine/Menthol (Benzocaine/Menthol Lozeng 1 Each Lozenge) 1 each MUCOUS MEM Q4HR PRN PRN Reason: Sore Throat Stop: 03/01/23 11:32 Calamine/Phenol (Menthol-Zinc Oxide Oint 113 Gm Tube) 1 applic TOPICAL DAILY PRN PRN Reason: MUSCLE PAIN Cholecalciferol (Cholecalciferol 125 Mcg (5000 Iu) Tablet) 125 mcg PO DAILY [facility]ENN Stop: 03/02/23 09:01 Last Admin: 02/01/23 08:56 Dose: 125 mcg Cyclobenzaprine HCl (Cyclobenzaprine 10 Mg Tab) 10 mg PO TID PRN PRN Reason: Muscle Spasm Stop: 03/01/23 11:32 Last Admin: 02/01/23 20:25 Dose: 10 mg Escitalopram Oxalate (Escitalopram 10 Mg Tab) 10 mg PO QAM [facility]ENN Stop: 03/02/23 09:01 Last Admin: 02/01/23 08:56 Dose: 10 mg Hydromorphone HCl (Hydromorphone 0.5 Mg/0.5 Ml Syringe) 0.5 mg IVP Q4HR PRN PRN Reason: Pain Stop: 03/01/23 11:32 Last Admin: 02/01/23 03:32 Dose: 0.5 mg Lactated Ringer's (Lactated Ringers) 1,000 mls @ 20 mls/hr IV .Q24H [facility] Stop: 02/28/23 08:31 Last Admin: 02/01/23 08:58 Dose: Not Given Sodium Chloride (Saline 0.9%) 1,000 mls @ 75 mls/hr IV .[id number] [facility] Stop: 03/01/23 11:46 Last Admin: 02/01/23 05:45 Dose: 75 mls/hr Cefazolin Sodium 2 gm/ Sodium (Chloride) 50 mls @ 100 mls/hr IVPB Q8HR [facility]; Protocol Last Admin: 02/01/23 16:44 Dose: 100 mls/hr Lamotrigine (Lamotrigine 100 Mg Tab) 300 mg PO QAM [facility] Stop: 03/02/23 09:01 Last Admin: 02/01/23 08:57 Dose: 300 mg Levothyroxine Sodium (Levothyroxine 25 Mcg Tab) 25 mcg PO DAILY@0630 [facility] Last Admin: 02/01/23 05:44 Dose: 25 mcg Magnesium Hydroxide (Magnesium Hydroxide 2,400 Mg/10 Ml Cup) 2,400 mg PO DAILY PRN PRN Reason: Constipation Stop: 03/01/23 11:32 Last Admin: 01/31/23 22:23 Dose: 2,400 mg Magnesium Hydroxide (Magnesium Hydroxide 2,400 Mg/10 Ml Cup) 2,400 mg PO DAILY PRN PRN Reason: Constipation Stop: 03/01/23 11:32 Ondansetron HCl (Ondansetron 4 Mg/2 Ml Vial) 4 mg IVP Q8HR PRN PRN Reason: Nausea And Vomiting Stop: 03/01/23 11:32 Last Admin: 01/31/23 20:08 Dose: 4 mg Senna/Docusate Sodium (Sennosides-Docusate Sodium 1 Each Tab) 1 each PO DAILY [facility] Stop: 03/02/23 09:01 Last Admin: 02/01/23 08:57 Dose: 1 each Past medical history to include: Thyroid disorder, constipation, osteoarthritis, anxiety Social history: . Nonsmoker. Alcohol rarely. Physical examination: VITAL SIGNS: 98.3, 87, 18, 132/76, 97% room air GENERAL: BMI 23.1, sitting up in chair. EYES: Pupils equal. Conjunctiva normal. HEENT: External appearance of nose and ears normal, oral cavity grossly normal. NECK: JVD not raised; masses not palpable. HEART: First and second heart sounds are normal; no edema. LUNGS: Respiratory rate normal; clear to auscultation. ABDOMEN: Soft, nontender, liver spleen not palpable, no masses palpable. PSYCH: Alert and oriented x3; mood and affect normal. MUSCULOSKELETAL:No Clubbing/cyanosis;muscles-grossly intact. Dressing over incision site in the lower back INVESTIGATIONS, reviewed in the clinical context: February 01: White count 9.6, hemoglobin 10.3, platelets 211 January 31: White count 9.9 hemoglobin 10.4 platelets 225 sodium 140 potassium 4.2 creatinine 0.6 01/22/2023: WBC 4.9 hemoglobin 11.8 potassium 4.3 creatinine 0.8 Assessment and plan: -Dynamic spondylitis this L4-L5, spinal stenosis L4-L5, L5-S1, low back pain, lower extremity radiculopathy in the right, facet arthrosis, DJD. Laminectomy and decompression discectomy placement of graft local bone grafting done on 01/30/[address] Rich Pain control -Nausea vomiting likely secondary to pain medications: Better Antiemetics -Mild acute blood loss anemia secondary as expected to procedure Give IV Ferrlecit -Hypothyroid Synthroid -Depression Lexapro, Xanax Care was discussed with the patient has been the bedside. Questions answered. Thank you Dr. Simmons
[2023-02-02] MEDS: HYDROcodone/APAP 5-325MG 1 EACH TAB PO PRN ×3 (01:53→11:39)
[2023-02-02] MEDS: LEVOTHYROXINE 25 MCG TAB PO SCH (06:21)
[2023-02-02] MEDS: CYCLOBENZAPRINE 10 MG TAB PO PRN (06:21)
[2023-02-02] MEDS: lamoTRIgine 100 MG TAB PO SCH (07:45)
[2023-02-02] MEDS: SENNOSIDES-DOCUSATE SODIUM 1 EACH TAB PO SCH (07:45)
[2023-02-02] MEDS: CHOLECALCIFEROL 125 MCG (5000 IU) TABLET PO SCH (07:46)
[2023-02-02] MEDS: ESCITALOPRAM 10 MG TAB PO SCH (07:46)
[2023-02-02 08:11] VITALS: BP 151/79; PULSE 97; TEMP 98.6
[2023-02-02] MEDS: LACTATED RINGERS 1,000 ML IV SCH (08:47)
[2023-02-02] MEDS: SODIUM CHLORIDE 0.9% 1,000 ML IV SCH (08:59)
--- NOTE | 2023-02-02 09:14 | P.DS ---
Providers Date of admission: 02/01/23 07:47 Expected date of discharge: 02/02/23 Attending physician: Sergey Simmons Consults: 01/30/23 11:40 Consult Physician Routine Consulting Provider: Fei Santana Consult Reason/Comments: Medical management Do you want consulting provider notified?: Yes Primary care physician: Kosta Mccloud - Discharge Diagnosis(es) (1) Lumbosacral stenosis Current Visit: Yes Status: Acute (2) Spondylolisthesis, lumbar region Current Visit: Yes Status: Acute (3) Lumbar facet arthropathy Current Visit: Yes Status: Acute (4) Lumbar degenerative disc disease Current Visit: Yes Status: Acute (5) Low back pain Current Visit: Yes Status: Acute (6) Spondylolysis of lumbar region Current Visit: Yes Status: Acute (7) Radiculopathy with lower extremity symptoms Current Visit: Yes Status: Acute (8) Hypothyroidism Current Visit: Yes Status: Acute (9) Lumbar stenosis Current Visit: Yes Status: Acute Hospital Course: This is a pleasant 67-year-old female who presented with Low back pain, L4-5 dynamic spondylolisthesis, L4-5 and L5-S1 spinal stenosis, Lower extremity radiculopathy, Lumbar facet arthrosis, Lumbar degenerative disc disease, and Lumbar spondylolysis who failed outpatient conservative therapy. She admitted for an L4-5 and L5-S1 minimally invasive posterior lateral decompression and fusion with transforaminal lumbar interbody fusion. The patient tolerated the procedure well and did well postoperatively. She had some difficulty with pain control initially but states her pain is been better controlled as compared to yesterday. She's been able to discontinue IV pain medication. Her pain has been adequately controlled with oral hydrocodone and cyclobenzaprine. She has been able to ambulate to the restroom. She is eating and voiding without difficulty. Her back pain is adequately controlled. She does have some spasm in the legs which has been better controlled with cyclobenzaprine. She feels she is ready for discharge today. Condition on day of discharge stable. Patient will be discharged home. Patient was cleared preoperatively for surgery by Dr. Mccloud. Patient currently denies any nausea, vomiting, fever, or chills. Patient is eating and voiding freely without difficulty. Patient may shower Optifoam dressing intact. Patient may remove Optifoam dressing in 3 days and shower without a dressing at that time. Patient should refrain from driving until at least after their first follow-up appointment in the office. Patient should avoid excessive bending, lifting, and twisting; no lifting greater than 10 pounds. She has been utilizing a walker to aid in ambulation may continue doing so as needed. She is not had a bowel movement but is passing gas. She is not experiencing any abdominal pain. MAPS has been reviewed today, 02/02/2023, with an Overall Overdose Risk Score of 220. An "Opiod Start Talking" Form has been signed and placed in the patient's chart. A prescription has been written for hydrocodone 5 mg/325 mg, take 1 tab every 4 hours as needed for acute pain, dispense #42. She is also given a prescription for cyclobenzaprine 10 mg 1 tab 3 times a day as needed for muscle spasms, dispensed #60. She given a prescription for Senokot-S 1 tab twice a day as needed for constipation. Patient should avoid anti-inflammatory medication over the next 6 weeks postoperatively. Patient's other medical diagnoses include hypothyroidism Physical Exam on day of discharge: Status post surgical day number 3 Patient is awake, alert, and oriented 3 Vital signs stable Good chest excursion with deep inspiration and expiration Dorsiflexion, plantarflexion, and extensor hallucis longus positive sustained bilaterally No signs or symptoms of DVT; no calf pain; pneumatic cuffs not currently intact bilateral lower extremities Optifoam dressings are clean, dry, and intact over the lumbar spine and right iliac crest; no erythema, purulence, or signs of infection Neurovascularly intact bilaterally lower extremities Procedures: L4-5 and L5-S1 minimally invasive posterior lateral decompression and fusion with transforaminal lumbar interbody fusion Patient Condition at Discharge: Stable Plan - Discharge Summary Discharge Rx Participant: Yes New Discharge Prescriptions: New Sennosides-Docusate Sodium [Senokot-S] 1 tab PO BID PRN #60 tablet PRN Reason: Constipation Cyclobenzaprine [Flexeril] 10 mg PO TID PRN #60 tab PRN Reason: Muscle Spasm HYDROcodone/APAP 5-325MG [[place] 5] 1 each PO Q4HR PRN #42 tab PRN Reason: Pain No Action ALPRAZolam [Xanax] 0.5 mg PO QID PRN PRN Reason: Anxiety Escitalopram [Lexapro] 10 mg PO QAM lamoTRIgine [LaMICtal] 300 mg PO QAM Ibuprofen [Motrin] 800 mg PO BID PRN PRN Reason: Pain Cholecalciferol [Vitamin D3 (125 Mcg = 5000 Iu)] 125 mcg PO DAILY Cyanocobalamin/Folic AC/Vit B6 [Homocysteine Formula Tablet] 1 each PO DAILY Vitamin K2 100 mcg PO DAILY Menthol [Biofreeze] 1 applic TOPICAL DIRECTED PRN PRN Reason: Pain Levothyroxine Sodium 25 mg PO DAILY Discharge Medication List ALPRAZolam [Xanax] 0.5 mg PO QID PRN 11/26/17 [History] Escitalopram [Lexapro] 10 mg PO QAM 11/26/17 [History] Cholecalciferol [Vitamin D3 (125 Mcg = 5000 Iu)] 125 mcg PO DAILY 01/24/23 [History] Cyanocobalamin/Folic AC/Vit B6 [Homocysteine Formula Tablet] 1 each PO DAILY 01/24/23 [History] Ibuprofen [Motrin] 800 mg PO BID PRN 01/24/23 [History] Menthol [Biofreeze] 1 applic TOPICAL DIRECTED PRN 01/24/23 [History] Vitamin K2 100 mcg PO DAILY 01/24/23 [History] lamoTRIgine [LaMICtal] 300 mg PO QAM 01/24/23 [History] Levothyroxine Sodium 25 mg PO DAILY 01/30/23 [History] Cyclobenzaprine [Flexeril] 10 mg PO TID PRN #60 tab 02/02/23 [Rx] HYDROcodone/APAP 5-325MG [[place] 5] 1 each PO Q4HR PRN #42 tab 02/02/23 [Rx] Sennosides-Docusate Sodium [Senokot-S] 1 tab PO BID PRN #60 tablet 02/02/23 [Rx] Follow up Appointment(s)/Ref[facility] - As Needed Eugene Winters PAC [PHYSICIAN REFRIGERATION HOUSEMAN] - 02/12/23 (Patient may follow-up with Eugene Winters PA-C or Dr. Marty Simmons at [facility] in 2-3 weeks following discharge. ) Activity/Diet/Wound Care/Special Instructions: 1. Patient may shower with Optifoam dressing intact. 2. Patient may remove Optifoam dressing in 3 days and shower without a dressing at that time. 3. Patient should refrain from driving until at least after their first follow- up appointment in the office. 4. Patient should avoid excessive bending, twisting, lifting; avoid overhead lifting; no lifting greater than 10 pounds 5. Patient may utilize walker to aid in ambulation as needed 6. Take medications as prescribed 7. Patient should avoid anti-inflammatory medications over the next 6 weeks postoperatively 8. Do not soak in tub Discharge Disposition: HOME SELF-CARE
== END 2023-02-02 12:20 | disposition home health service (06) | DRG 460 ==
LOC: OR 06:17 → 4SSUR 11:26 → OR 02-01 07:47
PROVIDERS: ADMIT Orthopaedic Surgery Orthopaedic Surgery of the Spine; ATTEND Orthopaedic Surgery Orthopaedic Surgery of the Spine
PROC: 01NB0ZZ Release Lumbar Nerve, Open Approach (ICD-10-PCS; 2023-01-30)
PROC: 01NR0ZZ Release Sacral Nerve, Open Approach (ICD-10-PCS; 2023-01-30)
PROC: 0SG30AJ Fusion of Lumbosacral Joint with Interbody Fusion Device, Posterior Approach, Anterior Column, Open Approach (ICD-10-PCS; 2023-01-30)
PROC: 0ST20ZZ Resection of Lumbar Vertebral Disc, Open Approach (ICD-10-PCS; 2023-01-30)
PROC: 0ST40ZZ Resection of Lumbosacral Disc, Open Approach (ICD-10-PCS; 2023-01-30)
PROC: 0QU007Z Supplement Lumbar Vertebra with Autologous Tissue Substitute, Open Approach (ICD-10-PCS; 2023-01-30)
PROC: 07DS0ZZ Extraction of Vertebral Bone Marrow, Open Approach (ICD-10-PCS; 2023-01-30)
PROC: 30233N0 Transfusion of Autologous Red Blood Cells into Peripheral Vein, Percutaneous Approach (ICD-10-PCS; 2023-01-30)
PROC: 0SG00AJ Fusion of Lumbar Vertebral Joint with Interbody Fusion Device, Posterior Approach, Anterior Column, Open Approach (ICD-10-PCS; principal; 2023-01-30 07:30)
DX: M43.16 Spondylolisthesis, lumbar region (principal); D62 Acute posthemorrhagic anemia; E03.9 Hypothyroidism, unspecified; F32.A Depression, unspecified; M47.26 Other spondylosis with radiculopathy, lumbar region; M48.062 Spinal stenosis, lumbar region with neurogenic claudication; M48.07 Spinal stenosis, lumbosacral region; M51.16 Intervertebral disc disorders with radiculopathy, lumbar region; R25.2 Cramp and spasm; Z79.899 Other long term (current) drug therapy; Z88.8 Allergy status to other drugs, medicaments and biological substances; Z88.1 Allergy status to other antibiotic agents
CPT/HCPCS: 72100; 80048; 85025; 86850; 86900; 86901

== ENCOUNTER → 2023-06-19 | Outpatient (CLI) | payer MEDICARE, BC ==
[2023-06-19 20:43] LABS: T4, Free (Free Thyroxine) 1.18 ng/dL (0.80-1.80)
== END | disposition home or self-care (01) ==
LOC: LABWHC1 14:42
PROVIDERS: ATTEND Internal Medicine Endocrinology, Diabetes & Metabolism
DX: E03.9 Hypothyroidism, unspecified (principal); E04.2 Nontoxic multinodular goiter; E55.9 Vitamin D deficiency, unspecified
CPT/HCPCS: 36415; 82306; 84439; 84443; 84481

== ENCOUNTER → 2023-08-26 | Outpatient (CLI) | payer MEDICARE, BC ==
--- NOTE | 2023-08-27 18:43 | MM ---
Reason for Exam: Screening (asymptomatic). Last mammogram was performed 1 year(s) and 7 month(s) ago. Patient History: Menarche at age 17. First Full-Term at age 23. Left ovary removed at age 44. Right ovary removed at age 44. Hysterectomy at age 44. Postmenopausal. Patient has history of breast feeding. Estrogen for 10 years, 6 months. 10/06/1997, Benign Core Biopsy on the right side. Maternal aunt had breast cancer. Maternal aunt had breast cancer. Mother had breast cancer, age 64. Risk Values: Brook 5 year model risk: 3.5%. NCI Lifetime model risk: 11.6%. Prior Study Comparison: 09/09/2018 Bilateral Screening Mammogram, [facility]. 10/17/2020 Screening Mammogram, [facility]. 01/26/2022 Bilateral Screening Mammogram, [facility]. Tissue Density: There are scattered fibroglandular densities. Findings: Analyzed By CAD. There is no suspicious group of microcalcifications or new suspicious mass in either breast. Overall Assessment: Negative, BI-RAD 1 Management: Screening Mammogram of both breasts in 1 year. See note below in regards to patient's increased five-year Brook score. Patient should continue monthly self-breast exams. A clinical breast exam by your physician is recommended on an annual basis. This exam should not preclude additional follow-up of suspicious palpable abnormalities. Note on Brook scores and lifetime risk: 1. A Brook score greater than 3% is considered moderate risk. If this is the case, consider specialist referral to assess eligibility for a risk reducing agent. 2. If overall lifetime risk for the development of breast cancer is 20% or higher, the patient may qualify for future screening with alternating mammogram and breast MRI. Electronically signed and approved by: Lesley Najera M.D. Radiologist
== END | disposition home or self-care (01) ==
LOC: RADMAMWWP 16:18
PROVIDERS: ATTEND Family Medicine
DX: Z12.31 Encounter for screening mammogram for malignant neoplasm of breast (principal); Z78.0 Asymptomatic menopausal state; Z80.3 Family history of malignant neoplasm of breast
CPT/HCPCS: 77063; 77067

== ENCOUNTER → 2024-06-17 | Outpatient (CLI) | payer MEDICARE, BC ==
[2024-06-17 15:22] LABS: Basophils # (A) 0.02 X 10*3/uL (0.00-0.10); Basophils % (A) 0.4 %; Eosinophils # (A) 0.09 X 10*3/uL (0.04-0.35); Eosinophils % (A) 1.9 %; HCT 40.6 % (37.2-46.3); HGB 13.2 g/dL (12.0-15.0); Lymphocytes # (A) 2.18 X 10*3/uL (0.90-5.00); Lymphocytes % (A) 46.8 %; MCH 30.8 pg (27.0-32.0); MCHC 32.5 g/dL (32.0-37.0); MCV 94.6 FL (80.0-97.0); Mean Platelet Volume 9.6 FL (9.5-12.2); Monocytes # (A) 0.38 X 10*3/uL (0.20-1.00); Monocytes % (A) 8.2 %; NRBC Per 100 WBC 0 X 10*3/uL (0.00-0.01); Neutrophils # (A) 1.98 X 10*3/uL (1.80-7.70); Neutrophils % (A) 42.5 %; Platelet Count 284 X 10*3/uL (140-440); RBC 4.29 X 10*6/uL (4.10-5.20); RDW 12.6 % (11.5-14.5); WBC 4.66 X 10*3/uL (4.50-10.00)
[2024-06-17 16:01] LABS: BUN/Creat Ratio 15.38 Ratio (12.00-20.00); Blood Urea Nitrogen 12.3 mg/dL (9.0-27.0); Carbon Dioxide 27.2 mmol/L (21.6-31.8); Chloride 102 mmol/L (96-109); Chol/HDL Ratio 3.47 Ratio; Glucose 103 mg/dL (70-110); LDL Cholesterol,Calculated 149.1 mg/dL (0.0-131.0); Potassium 5.2 mmol/L (3.5-5.5); Sodium 140 mmol/L (135-145); VLDL Calculation 16.06 mg/dL (5.00-40.00)
[2024-06-17 16:02] LABS: ALT 20 U/L (8-44); AST 21 U/L (13-35); Albumin 4.7 g/dL (3.8-4.9); Albumin/Globulin Ratio 1.96 Ratio (1.60-3.17); Alkaline Phosphatase 67 U/L (41-126); Calcium 10.3 mg/dL (8.7-10.3); Globulin 2.4 g/dL (1.6-3.3); Total Bilirubin 0.4 mg/dL (0.3-1.2); Total Protein 7.1 g/dL (6.2-8.2)
== END | disposition home or self-care (01) ==
LOC: LABWHC1 11:11
PROVIDERS: ATTEND Family Medicine
DX: F33.0 Major depressive disorder, recurrent, mild (principal); F41.9 Anxiety disorder, unspecified
CPT/HCPCS: 36415; 80053; 80061; 85025

== ENCOUNTER → 2024-06-25 | Outpatient (CLI) | payer MEDICARE, BC ==
[2024-06-25 18:55] LABS: Albumin 4.7 g/dL (3.8-4.9); Calcium 9.7 mg/dL (8.7-10.3); T4, Free (Free Thyroxine) 1.06 ng/dL (0.80-1.80)
== END | disposition home or self-care (01) ==
LOC: LABWHC1 14:13
PROVIDERS: ATTEND Internal Medicine Endocrinology, Diabetes & Metabolism
DX: E04.2 Nontoxic multinodular goiter (principal); E03.9 Hypothyroidism, unspecified; E06.3 Autoimmune thyroiditis; E55.9 Vitamin D deficiency, unspecified
CPT/HCPCS: 36415; 82040; 82306; 82310; 84439; 84443; 84481

== ENCOUNTER → 2024-10-20 | Outpatient (CLI) | payer MEDICARE, BC ==
--- NOTE | 2024-10-26 07:22 | MM ---
Reason for Exam: Screening (asymptomatic). Last mammogram was performed 1 year(s) and 1 month(s) ago. Patient History: Menarche at age 17. First Full-Term at age 23. Left ovary removed at age 44. Right ovary removed at age 44. Hysterectomy at age 44. Postmenopausal. Patient has history of breast feeding. Estrogen for 10 years, 6 months. 10/06/1997, Benign Core Biopsy on the right side. Maternal aunt had breast cancer. Maternal aunt had breast cancer. Mother had breast cancer, age 64. Risk Values: Brook 5 year model risk: 3.5%. NCI Lifetime model risk: 11.1%. Prior Study Comparison: 10/17/2020 Screening Mammogram, [facility]. 01/26/2022 Bilateral Screening Mammogram, [facility]. 08/26/2023 Bilateral MG 3D screening mammo w/cad, [facility]. Tissue Density: The breasts are heterogeneously dense, which may obscure small masses. Findings: Analyzed By CAD. Right breast: There is no suspicious group of microcalcifications or new suspicious mass. Left breast: There is no suspicious group of microcalcifications or new suspicious mass. Overall Assessment: Negative, BI-RAD 1 Management: Screening Mammogram of both breasts in [address] [facility] will attempt to contact patient to return for supplemental views and ultrasound if indicated. Patient should continue monthly self-breast exams. A clinical breast exam by your physician is recommended on an annual basis. This exam should not preclude additional follow-up of suspicious palpable abnormalities. Note on Brook scores and lifetime risk: 1. A Brook score greater than 3% is considered moderate risk. If this is the case, consider specialist referral to assess eligibility for a risk reducing agent. 2. If overall lifetime risk for the development of breast cancer is 20% or higher, the patient may qualify for future screening with alternating mammogram and breast MRI. [facility], , 10/26/2024 7:19 AM. Electronically signed and approved by: Derik Couch DO
== END | disposition home or self-care (01) ==
LOC: RADMAMWWP 07:27
PROVIDERS: ATTEND Family Medicine
DX: Z12.31 Encounter for screening mammogram for malignant neoplasm of breast (principal); Z90.722 Acquired absence of ovaries, bilateral; Z78.0 Asymptomatic menopausal state; Z80.3 Family history of malignant neoplasm of breast; R92.333 Mammographic heterogeneous density, bilateral breasts
CPT/HCPCS: 77063; 77067

== ENCOUNTER → 2025-02-03 | Outpatient (CLI) | payer MEDICARE, BC ==
[2025-02-03 15:51] LABS: Basophils # (A) 0.03 X 10*3/uL (0.00-0.10); Basophils % (A) 0.7 %; Eosinophils # (A) 0.11 X 10*3/uL (0.04-0.35); Eosinophils % (A) 2.6 %; HCT 38.6 % (37.2-46.3); HGB 12.5 g/dL (12.0-15.0); Lymphocytes # (A) 1.99 X 10*3/uL (0.90-5.00); Lymphocytes % (A) 46.4 %; MCHC 32.4 g/dL (32.0-37.0); MCV 92.8 FL (80.0-97.0); Mean Platelet Volume 9.4 FL (9.5-12.2); Monocytes # (A) 0.34 X 10*3/uL (0.20-1.00); Monocytes % (A) 7.9 %; NRBC Per 100 WBC 0 X 10*3/uL (0.00-0.01); Neutrophils # (A) 1.81 X 10*3/uL (1.80-7.70); Neutrophils % (A) 42.2 %; Platelet Count 278 X 10*3/uL (140-440); RBC 4.16 X 10*6/uL (4.10-5.20); WBC 4.29 X 10*3/uL (4.50-10.00)
[2025-02-03 16:04] LABS: ALT 21 U/L (8-44); AST 23 U/L (13-35); Albumin 4.4 g/dL (3.8-4.9); Albumin/Globulin Ratio 1.69 Ratio (1.60-3.17); Alkaline Phosphatase 60 U/L (41-126); BUN/Creat Ratio 15.25 Ratio (12.00-20.00); Blood Urea Nitrogen 12.2 mg/dL (9.0-27.0); Calcium 9.7 mg/dL (8.7-10.3); Carbon Dioxide 26.9 mmol/L (21.6-31.8); Chloride 104 mmol/L (96-109); Chol/HDL Ratio 3.38 Ratio; Globulin 2.6 g/dL (1.6-3.3); Glucose 107 mg/dL (70-110); LDL Cholesterol,Calculated 140.2 mg/dL (0.0-131.0); Potassium 4.7 mmol/L (3.5-5.5); Sodium 139 mmol/L (135-145); Total Bilirubin 0.3 mg/dL (0.3-1.2); VLDL Calculation 12.64 mg/dL (5.00-40.00)
== END | disposition home or self-care (01) ==
LOC: LABWHC1 10:05
PROVIDERS: ATTEND Family Medicine
DX: F41.9 Anxiety disorder, unspecified (principal); F33.0 Major depressive disorder, recurrent, mild
CPT/HCPCS: 36415; 80053; 80061; 85025